=== PATIENT | male | born 1980 | race Caucasian/White ===

== ENCOUNTER 2022-05-26 11:38 | Emergency (ER) | payer OTHER, SELFPAY ==
[2022-05-26 11:59] VITALS: BP 117/75; PULSE 61; RESP 18; TEMP 36.6; O2SAT 100; BMI 24.8
--- NOTE | 2022-05-26 12:06 | PC.NURSE ---
Will stand by assist with doctor for testicle exam
--- NOTE | 2022-05-26 12:12 | DI.US.S_ITS ---
PROCEDURE: US SCROTUM INDICATIONS: LEFT TESTICULAR PAIN TECHNIQUE: Real-time scanning was performed of the scrotum and testicles, with image documentation. Color and pulse Doppler interrogation was performed of both testicles. COMPARISON: None. FINDINGS: Right: Testicle is normal in size at 5 x 2.4 x 3.6 cm, and homogenous in echotexture. Epididymis is normal in overall size and morphology. No varicoceles. There is a small right-sided hydrocele. Overlying scrotal skin is normal in thickness. Left: Testicle is normal in size at 5.8 x 2.9 x 3 cm, and homogeneous in echotexture. Epididymis is normal in overall size and morphology. No hydrocele or varicoceles. Overlying scrotal skin is normal in thickness. Doppler: Color and pulse Doppler demonstrate normal and symmetric arterial flow in both testicles. IMPRESSION: Normal appearing left testicle, with normal appearing vascularity. No testicular masses are seen. A small right-sided hydrocele can be seen. Dictated by: Edis Mena M.D. on 05/26/2022 at 12:21 Approved by: Edis Mena M.D. on 05/26/2022 at 12:22
--- NOTE | 2022-05-26 14:51 | ED_ITS ---
HPI - Male Genitourinary <Francisco Javier Lyon PA-C - Last Filed: 05/26/22 15:02> General Chief complaint: Urogenital-Male Stated complaint: needs an US, lt testicular pain; sent by [facility] in [place] Time Seen by Provider: 05/26/22 12:17 Source: patient Mode of arrival: Family Vehicle History of Present Illness HPI Narrative: Patient is a 41-year-old male presents to the emergency room today with complaint of left testicular pain it started about 3 days ago. Patient states he here in the emergency room today because he reported to the [facility] and they did not have access to an ultrasound. Describes the pain as a dull ache to the left take it testicle that does not radiate. The pain is not tender to touch but he can feel it as a dull ache. Pain is not there all the time and it comes and goes. Denies any urology or bowel bladder concerns. Also denies any sexual dysfunction associated with this condition. Main concern is making sure nothing serious is going on at this time. Related Data Previous Rx's Medication Instructions Recorded albuterol sulfate 90 mcg/actuation 0 puff INH Q4HP PRN #1 ea 08/13/16 aerosol inhaler (Ventolin HFA) doxycycline hyclate 100 mg capsule 100 mg PO Q12H #20 caps 08/13/16 guaifenesin 100 mg oral granules 100 mg PO Q6HP PRN ##20 08/13/16 in packet (Child Mucinex Chest Congest Mini-Melts) Allergies Allergy/AdvReac Type Severity Reaction Status Date / Time No Known Allergies Allergy Uncoded 01/08/18 12:34 <Jayla Kunz DO - Last Filed: 06/02/22 08:02> History of Present Illness HPI Narrative: Patient is a 41-year-old male presents to the emergency room today with complaint of left testicular pain it started about 3 days ago. Patient states he here in the emergency room today because he reported to the [facility] clinic and they did not have access to an ultrasound. Describes the pain as a dull ache to the left take it testicle that does not radiate. The pain is not tender to touch but he can feel it as a dull ache. Pain is not there all the time and it comes and goes. Denies any urology or bowel bladder concerns. Also denies any sexual dysfunction associated with this condition. Main concern is making sure nothing serious is going on at this time. Review of Systems <Francisco Javier Lyon PA-C - Last Filed: 05/26/22 15:02> Review of Systems Narrative: R.O.S.: General: No fever, chills or fatigue. Cardiovascular: No chest pain or palpitations Respiratory: No S.O.B. HEENT: No congestion, ear pain, rhinorrhea, sore throat or tinnitus Gastrointestinal: No nausea or vomiting Skin: No rash or associated abnormalities Neurological: Awake, alert and in not apparent distress. No Headaches, changes in vision or other related neurological concerns. Patient History <Francisco Javier Lyon PA-C - Last Filed: 05/26/22 15:02> Social History Smoking Status: Former smoker Smoking Status: Former smoker tobacco type: cigarettes alcohol intake frequency: 0-2 drinks per day Alcohol type: beer, wine and hard liquor Substance Use Type: does not use Exam <Francisco Javier Lyon PA-C - Last Filed: 05/26/22 15:02> Narrative Exam Narrative: Physical Exam: ? General: normal appearance, well developed, well nourished, alert, and awake. Not in acute distress. ? Head: Normocephalic, no lesions. Chest: Lungs CTAB, no rales, rhonchi or wheezes. ?? Heart: RRR, no murmurs, rubs or gallops. Eyes: PERRLA, EOM's full, conjunctivae clear. ? Neuro: Physiological, no localizing findings, CN3-12 intact. ?? Extremities: Warm, well perfused, FROM, no deformities, no edema. ?? Skin: Normal, no rashes, no lesions noted. ?? PSYCHIATRIC: The mood is good, no blunted affect. Speech is clear. Thought process is linear, thought content is appropriate. The voice is without significant inflection. Abdomen: Soft; NT; ND; Pos BS with Neg. rebound tenderness. No scars or major deformities noted on Visual Inspection. Initial Vital Signs Initial Vital Signs: Vital Signs Temperature 97.9 F 05/26/22 11:59 Pulse Rate 61 05/26/22 11:59 Respiratory Rate 18 05/26/22 11:59 Blood Pressure 117/75 05/26/22 11:59 Pulse Oximetry 100 05/26/22 11:59 Oxygen Delivery Method 05/26/22 11:59 <Jayla Kunz DO - Last Filed: 06/02/22 08:02> Initial Vital Signs Initial Vital Signs: Vital Signs Temperature 97.9 F 05/26/22 11:59 Pulse Rate 61 05/26/22 11:59 Respiratory Rate 18 05/26/22 11:59 Blood Pressure 117/75 05/26/22 11:59 Pulse Oximetry 100 05/26/22 11:59 Oxygen Delivery Method 05/26/22 11:59 Course <Francisco Javier Lyon PA-C - Last Filed: 05/26/22 15:02> Orders Ordered: ED Orders 05/26/22 12:12 US scrotum Stat Vital Signs Vital signs: Vital Signs - 8 hr 05/26/22 11:59 05/26/22 14:58 Temperature 97.9 F Pulse Rate 61 51 L Respiratory Rate 18 16 Blood Pressure 117/75 149/77 H Pulse Oximetry 100 100 Oxygen Delivery Method Room Air Room Air <Jayla Kunz DO - Last Filed: 06/02/22 08:02> Orders Ordered: ED Orders 05/26/22 12:12 US scrotum Stat Vital Signs Vital signs: Vital Signs - 8 hr 05/26/22 11:59 05/26/22 14:58 Temperature 97.9 F Pulse Rate 61 51 L Respiratory Rate 18 16 Blood Pressure 117/75 149/77 H Pulse Oximetry 100 100 Oxygen Delivery Method Room Air Room Air MDM - Male Genitourinary <Francisco Javier Lyon PA-C - Last Filed: 05/26/22 15:02> Lab Data Labs: Urine Dip Bedside Urine Glucose Negative Bedside Urine Bilirubin - Negative Bedside Urine Ketone - Negative Urine Specific Guthrie 1.025 Bedside Urine Occult Blood - Negative Bedside Urine pH 6.0 Bedside Urine Protein - Negative Bedside Urine Urobilinogen - Negative Bedside Urine Nitrite - Negative Bedside Urine Leukocytes - Negative Esterase Imaging Data Testicular US: Radiologist's Impression: PROCEDURE:? US SCROTUM ? INDICATIONS:? LEFT TESTICULAR PAIN ? TECHNIQUE:? Real-time scanning was performed of the scrotum and testicles, with image documentation.? Color and pulse Doppler interrogation was performed of both testicles.? ? COMPARISON:? None. ? FINDINGS:? ? Right:? Testicle is normal in size at 5 x 2.4 x 3.6 cm, and homogenous in echotexture.? Epididymis is normal in overall size and morphology.? No varicoceles.? There is a small right-sided hydrocele.? Overlying scrotal skin is normal in thickness.? ? Left:? Testicle is normal in size at 5.8 x 2.9 x 3 cm, and homogeneous in echotexture.? Epididymis is normal in overall size and morphology.? No hydrocele or varicoceles.? Overlying scrotal skin is normal in thickness.? ? Doppler:? Color and pulse Doppler demonstrate normal and symmetric arterial flow in both testicles.? ? IMPRESSION:? Normal appearing left testicle, with normal appearing vascularity.? No testicular masses are seen. ? A small right-sided hydrocele can be seen. ? ? Dictated by: Edis Mena M.D. on 05/26/2022 at 12:21 ? ? Approved by: Edis Mena M.D. on 05/26/2022 at 12:22 ? MDM Narrative Medical decision making narrative: Patient is a 42-year-old male who presents to the emergency room today with com plaint of left testicular pain it started about 3 days ago. The pain is a dull ache does not radiate and is not tender this time patient also denies any or bowel bladder concerns at this time. Ultrasound and urine were essentially negative. Patient however was diagnosed with a right-sided hydrocele and is being referred to Urology. <Jayla Kunz, DO - Last Filed: 06/02/22 08:02> Lab Data Labs: Urine Dip Bedside Urine Glucose Negative Bedside Urine Bilirubin - Negative Bedside Urine Ketone - Negative Urine Specific Guthrie 1.025 Bedside Urine Occult Blood - Negative Bedside Urine pH 6.0 Bedside Urine Protein - Negative Bedside Urine Urobilinogen - Negative Bedside Urine Nitrite - Negative Bedside Urine Leukocytes - Negative Esterase Discharge Plan Departure Patient Disposition: Home Clinical Impression: Pain in left testicle Instructions: DI for Testicular Pain Activity Restrictions/Additional Instructions: *You have been diagnosed with [left Testicular pain. Ultrasound was negative for urgent emergent concerns but did reveal a hydrocele. As we discussed I will be referring you to urology. We have collected and examined your urine is also negative for infection at this time. I suggested follow-up with urology as are ordered and also suggest she return to the emergency room for any emergent concerns arise..] *What to do: *Please continue to take your regular medications as directed. [ ] New medication prescriptions sent to your pharmacy: [ ] [ ] New medication written as a paper prescription [x] No new medications given *Please follow up with your primary care provider in 2-3 days, call for an appointment. Let them know you were seen in the Emergency Department and that we ask that you be seen in follow up. We will electronically transmit a record of today's note if your PCP is in our system *If you do not have a primary care provider please contact the [facility] Resource line at [phone]. They will ask some questions about your medical history and help get you set up with a doctor in the community. *Return to Emergency Department if you should have any new, worsening or concerning symptoms, such as [fever greater than 101 F, shaking chills, worsening pain, persistent vomiting or other bothersome symptoms] Prescriptions: No Action doxycycline hyclate 100 MG capsule 100 mg PO Q12H Qty: 20 0RF albuterol sulfate [Ventolin HFA] 90 MCG/PUFF HFA aerosol inhaler 0 puff INH Q4HP PRNQty: 1 0RF guaifenesin [Child Mucinex Chest Mini-Melts] 100 MG granules in packet 100 mg PO Q6HP PRNQty: 20 0RF Referrals: Gricelda Garcia MD [Non-Staff] - Nanci Kelly PA-C [Primary Care Provider] - Visit Report Forms: Patient Portal/API <Jayla Kunz DO - Last Filed: 06/02/22 08:02> [place] [facility] Attending Marissa Attestation: I was immediately available in the department for consultation. Documentation has been reviewed.
[2022-05-26 14:58] VITALS: BP 149/77; PULSE 51; RESP 16; O2SAT 100
== END 2022-05-26 15:00 | disposition home or self-care (01) ==
PROVIDERS: Emergency Provider Physician Assistant; Family Provider Family Medicine; PCP Physician Assistant
DX: N50.812 Left testicular pain (principal)
CPT/HCPCS: 76870; 81003; 93975; 99283

== ENCOUNTER 2023-05-06 15:00 | Outpatient (RCR) | payer OTHER, SELFPAY ==
--- NOTE | 2023-03-19 17:41 | PT.OIE ---
Current Diagnoses Radiculopathy, lumbar region (03/19/23) Visit Care Team Role Provider Type Nanci Kelly PA-C Attending Provider Non-Staff Family Provider Primary Care Provider Referring Provider Specialty: Medical Address: [address], [facility] [address], [place], [address] Email: Physical Therapy Initial Evaluation PT-OP-A Visit Information Start: 03/15/23 18:50 Freq: Status: Active Protocol: Document 03/19/23 09:38 LRN (Rec: 03/19/23 13:18 LRN [id number]) Out-Patient Physical Therapy Visit Information Visit Information Visit Type Initial Evaluation Visit Start Time 09:38 Visit Stop Time 10:30 Total Visit Minutes 52 Visit Number 1 Evaluation Information Evaluation Date 03/19/23 Precautions Precautions None PT-OP-B Current Condition Start: 03/15/23 18:50 Freq: Status: Active Protocol: Document 03/19/23 09:38 LRN (Rec: 03/19/23 13:18 LRN [id number]) Current Condition History of Current Condition Onset Date 3 months ago Current Complaints Pain only in posterior L thigh History of Current Condition At 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 The next day had pain in the L LB, day later moved into the lateral hip, then 1 week later the pain moved from the LB/hip into the posterior thigh alone. Worked for past 5 yrs. Still working same duties, trying to take it easy . 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 Pain present after standing 10 minutes or walking 15 minutes. Prior Treatments and Tests Medications: Steroids by mouth. Future Testing and Treatments Planned MRI after PT. Treatment Goals Patient/Caregiver Goals Pt goal is to decrease the L Leg pain to be able to walk > 30 minutes or stand > 30 minutes w/o pain. 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 PT-OP-C Subjective Start: 03/15/23 18:50 Freq: Status: Active Protocol: Document 03/19/23 09:38 LRN (Rec: 03/19/23 13:18 LRN [id number]) Patient Questionnaires Oswestry Low Back Index Oswestry Score 24 Oswestry Impairment 20 to 39% Impaired (Score 20- 39) OP-PT Pain Assessment Pain Assessment Grid Paper Pain Assessment Grid Completed Yes Location Posterior L thigh Pain Location Details Posterior L thigh Intensity 5 Scale Used Numeric (0 - 10) Description Sharp,Shooting Description- Other Pain with prolonged standing or walking Frequency Intermittent Radiating Location Posterior thigh Pain Aggravating Factors Standing,Walking PT-OP-H Neuro Start: 03/15/23 18:50 Freq: Status: Active Protocol: Document 03/19/23 09:38 LRN (Rec: 03/19/23 13:18 LRN [id number]) Sensation Evaluation Gross Sensation Gross Sensation WNL Deep Tendon Reflex & Clonus Assessment Deep Tendon Reflex Left Achilles Deep Tendon Reflex 2+ Normal Right Achilles Deep Tendon Reflex 1+ Diminished Bilateral Patellar Deep Tendon Reflex 2+ Normal PT-OP-J Posture/Palpation/Skin Start: 03/15/23 18:50 Freq: Status: Active Protocol: Document 03/19/23 09:38 LRN (Rec: 03/19/23 13:18 LRN [id number]) Posture Evaluation Position Standing Head/C-Spine Posture Forward Head Pelvis Posture Anteriorly Tilted Weight Distribution Balanced Hip Posture (L) Neutral Comments Posture Comments C-curve of L/S with apex on the left. Palpation Assessment Location Posterior L thigh Palpation Location Posterior L thigh Palpation Findings Soft Tissue Tightness Low back Palpation Location Low back and posterior L hip Palpation Findings Soft Tissue Tightness Palpation Details No pain. PT-OP-K Range of Motion Start: 03/15/23 18:50 Freq: Status: Active Protocol: Document 03/19/23 09:38 LRN (Rec: 03/19/23 13:18 LRN [id number]) Lumbar Spine Range of Motion Lumbar Spine Active Degrees Testing Position Standing Flexion 55 Extension 20 Rotation Left 20 Rotation Right 20 Lateral Flexion Left 15 Lateral Flexion Right 15 ROM Limitations Soft Tissue Tightness,Pain Comments Pain with Flexion Trunk AROM: Flexion is 55 deg ?s with 20 deg?s hip flexion, Trunk extension is 20 deg?s with 10 deg?s hip extension. Hip Goniometric Range of Motion Hip Right Passive Hip ROM WFL Yes Testing Position Supine Straight Leg Raise 50 Internal Rotation 20 External Rotation 40 Left Passive Hip ROM WFL No Testing Position Supine Straight Leg Raise 45 Internal Rotation 25 External Rotation 40 PT-OP-L Special Tests Start: 03/15/23 18:50 Freq: Status: Active Protocol: Document 03/19/23 09:38 LRN (Rec: 03/19/23 13:18 LRN [id number]) Special Tests Lumbar Spine Special Tests Slump Test Results - Comments Lateral hamsting pain.. Straight Leg Raise Test Results +L, 45 deg's, 55 deg's right Prone Press Up Test Results - Vertical Spine Loading Test Results - PT-OP-M Strength Start: 03/15/23 18:50 Freq: Status: Active Protocol: Document 03/19/23 09:38 LRN (Rec: 03/19/23 13:18 LRN [id number]) Trunk Strength Trunk Manual Muscle Testing Core Stabilization Mild lack of stability with trunk rot. Hand Blanket Folder/Pinch Strength Hand Dominance Hand Dominance Right Hip Strength Hip Manual Muscle Testing Right Comments Generally 5/5 Left Comments Generally 5/5 Knee Strength Knee Manual Muscle Testing Right Comments Generally 5/5 Left Comments Generally 5/5 Ankle/Foot Strength Ankle and Foot Manual Muscle Testing Right Comments Generally 5/5 Left Comments Generally 5/5 Toe Strength Toe Manual Muscle Testing Right Great Toe Flexion 5 Normal Left Great Toe Extension 5 Normal PT-OP-Q Treatments Start: 03/15/23 18:50 Freq: Status: Active Protocol: Document 03/19/23 09:38 LRN (Rec: 03/19/23 13:18 LRN [id number]) Therapeutic Exercises Supine Exercises DKTC Supine Exercise Name DKTC Reps/Minutes 2 sec x 2 SKTC Supine Exercise Name SKTC Side bilateral Reps/Minutes 2 sec x 2 Sciatic n glide Supine Exercise Name Hamstring stretch with ankle DF/KY Side left Reps/Minutes 2' Sitting Exercises Sciatic n glide Sitting Exercise Name Sciatic n slider and tensioiner Side left Reps/Minutes 2' Self-Care/Home Management Treatment Education Patient Education Home Exercise Program Other Education Discussed results of evaluation, goals, and plan of care (POC). Pt agreeable to goals and POC. Activities Self-Care/Home Management Activities Issued HEP: SKTC, Hamstring/ LE neural stretch supine and sitting, and Sciatic slider and tensioner. PT-OP-T Assessment and Plan Start: 03/15/23 18:50 Freq: Status: Active Protocol: Document 03/19/23 09:38 LRN (Rec: 03/19/23 13:18 LRN [id number]) Physical Therapy Assessment Rehab Potential Rehabilitation Potential Good Evaluation Complexity Number of Personal Factors/Comorbidities 1-2 Number of Body Systems Impaired 4 or More Clinical Presentation at Evaluation Evolving Impairments Impairments Activity Tolerance,Pain,ROM, Strength Goals Two Impairment L leg pain limiting functional ability Impairment ALFA score 12/50 (24/100) Short Term Goal (STG) Decrease the L Leg pain to be able to walk > 30 minutes or stand > 30 minutes w/o pain. STG Duration 04/18/23 LTG Duration 04/30/23 One Impairment Lacks appropriate self care HEP. Short Term Goal (STG) Pt will be educated in proper sitting and standing posture, proper transfers to to protect LB and proper body mechanics. STG Duration 04/18/23 Chicle Grinder Feeder Goal (LTG) Pt will be independent with a self care HEP of LB/pelvic core stab and hip/lumbar mobility ex's. LTG Duration 06/17/23 Assessment Summary Assessment Pt is a 42 yo male who presents with soft tissue dysfunction of the low back and hips (L>R) with LLE sciatic pain. The pt will benefit from skilled physical therapy to improve trunk/hip mobility and core stability, and pt education to work towards achieving the above stated goals. Physical Therapy Plan Frequency and Duration Frequency of Treatment 2x/Week Plan of Care Start Date 03/19/23 Plan of Care End Date 06/17/23 Therapeutic Interventions Therapeutic Interventions Home Exercise Program,Joint Mobilizations,Manual Therapy, Neuromuscular Re-education, Patient/Caregiver Education, Self-Care/Home Management,Soft Tissue Mobilization, Therapeutic Activities, Therapeutic Exercises Modalities Cold Pack/Ice Massage,Electric Stimulation,Hot Packs, Ultrasound Next Visit Focus/Plan Next Note Type Treatment Note Next Visit Plan Ther Ex: Improve trunk flex, hip mobility (Piriformis, hamstring, hip ER) for sciatic pain, neural glides. Modalities: MH or CP/ES to LB /SIJ. Education: Posture, body mechanics. Manual: L/S, T/S BESST.
--- NOTE | 2023-03-19 17:41 | PT.OPPOC ---
Physical, Occupational & Speech Therapy At [facility] Current Diagnoses Radiculopathy, lumbar region (03/19/23) Visit Care Team Role Provider Type Nanci Kelly PA-C Attending Provider Non-Staff Family Provider Primary Care Provider Referring Provider Specialty: Medical Address: [facility] [address], [address] [address], [place], [address] Email: Plan Of Care PT-OP-T Assessment and Plan Start: 03/15/23 18:50 Freq: Status: Active Protocol: Document 03/19/23 09:38 LRN (Rec: 03/19/23 13:18 LRN [id number]) Physical Therapy Assessment Rehab Potential Rehabilitation Potential Good Evaluation Complexity Number of Personal Factors/Comorbidities 1-2 Number of Body Systems Impaired 4 or More Clinical Presentation at Evaluation Evolving Impairments Impairments Activity Tolerance,Pain,ROM, Strength Goals Two Impairment L leg pain limiting functional ability Impairment ALFA score 12/50 (24/100) Short Term Goal (STG) Decrease the L Leg pain to be able to walk > 30 minutes or stand > 30 minutes w/o pain. STG Duration 04/18/23 LTG Duration 04/30/23 One Impairment Lacks appropriate self care HEP. Short Term Goal (STG) Pt will be educated in proper sitting and standing posture, proper transfers to to protect LB and proper body mechanics. STG Duration 04/18/23 Knifer Up Goal (LTG) Pt will be independent with a self care HEP of LB/pelvic core stab and hip/lumbar mobility ex's. LTG Duration 06/17/23 Assessment Summary Assessment Pt is a 42 yo male who presents with soft tissue dysfunction of the low back and hips (L>R) with LLE sciatic pain. The pt will benefit from skilled physical therapy to improve trunk/hip mobility and core stability, and pt education to work towards achieving the above stated goals. Physical Therapy Plan Frequency and Duration Frequency of Treatment 2x/Week Plan of Care Start Date 03/19/23 Plan of Care End Date 06/17/23 Therapeutic Interventions Therapeutic Interventions Home Exercise Program,Joint Mobilizations,Manual Therapy, Neuromuscular Re-education, Patient/Caregiver Education, Self-Care/Home Management,Soft Tissue Mobilization, Therapeutic Activities, Therapeutic Exercises Modalities Cold Pack/Ice Massage,Electric Stimulation,Hot Packs, Ultrasound Next Visit Focus/Plan Next Note Type Treatment Note Next Visit Plan Ther Ex: Improve trunk flex, hip mobility (Piriformis, hamstring, hip ER) for sciatic pain, neural glides. Modalities: MH or CP/ES to LB /SIJ. Education: Posture, body mechanics. Manual: L/S, T/S JMT. Plan of Care Dates Plan of Care Start Date 03/19/23 Plan of Care End Date 06/17/23 Electronically Signed by: Kiana Matute, PT 03/19/23 [id number] If you are in agreement with this Plan of Care, please return a signed and dated copy. I have reviewed this Plan of Care and certify that the skilled therapy services above are required to meet the patient?s needs. Physician Signature Date Printed Name and Credentials Clinical Instructor Signature Printed Name and Credentials
--- NOTE | 2023-03-21 17:45 | PT.OTN ---
Current Diagnoses Radiculopathy, lumbar region (03/21/23) Physical Therapy Treatment Note PT-OP-A Visit Information Start: 03/15/23 18:50 Freq: Status: Active Protocol: Document 03/21/23 09:34 LRN (Rec: 03/21/23 10:28 LRN [id number]) Out-Patient Physical Therapy Visit Information Visit Information Visit Type Treatment Note Visit Start Time 09:34 Visit Stop Time 10:16 Total Visit Minutes 42 Visit Number 2 Evaluation Information Evaluation Date 03/21/23 Precautions Precautions None PT-OP-B Current Condition Start: 03/15/23 18:50 Freq: Status: Active Protocol: Document 03/19/23 09:38 LRN (Rec: 03/19/23 13:18 LRN [id number]) Current Condition History of Current Condition Onset Date 3 months ago Current Complaints Pain only in posterior L thigh History of Current Condition 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 The next day had pain in the L LB, day later moved into the lateral hip, then 1 week later the pain moved from the LB/hip into the posterior thigh alone. Worked for past 5 yrs. Still working same duties, trying to take it easy . 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 Pain present after standing 10 minutes or walking 15 minutes. Prior Treatments and Tests Medications: Steroids by mouth. Future Testing and Treatments Planned MRI after PT. Treatment Goals Patient/Caregiver Goals Pt goal is to decrease the L Leg pain to be able to walk > 30 minutes or stand > 30 minutes w/o pain. 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 PT-OP-C Subjective Start: 03/15/23 18:50 Freq: Status: Active Protocol: Document 03/21/23 09:34 LRN (Rec: 03/21/23 10:28 LRN [id number]) OP-PT Subjective Patient Comments Patient Comments Pt reports no pain in RLB or hip yet today. Onset L gastroc pain after ~5' on TM, described as achy pain, not toothache pain. PT-OP-H Neuro Start: 03/15/23 18:50 Freq: Status: Active Protocol: Document 03/19/23 09:38 LRN (Rec: 03/19/23 13:18 LRN [id number]) Sensation Evaluation Gross Sensation Gross Sensation WNL Deep Tendon Reflex & Clonus Assessment Deep Tendon Reflex Left Achilles Deep Tendon Reflex 2+ Normal Right Achilles Deep Tendon Reflex 1+ Diminished Bilateral Patellar Deep Tendon Reflex 2+ Normal PT-OP-J Posture/Palpation/Skin Start: 03/15/23 18:50 Freq: Status: Active Protocol: Document 03/21/23 09:34 LRN (Rec: 03/21/23 10:28 LRN [id number]) Palpation Assessment Location L innominate Palpation Location PSIS, ASIS, leg length Palpation Details Sup: L ASIS is low Prone: L PSIS is high Leg length (ASIS to Medial Malleolus): 92.7 cm bilaterally. PT-OP-K Range of Motion Start: 03/15/23 18:50 Freq: Status: Active Protocol: Document 03/19/23 09:38 LRN (Rec: 03/19/23 13:18 LRN [id number]) Lumbar Spine Range of Motion Lumbar Spine Active Degrees Testing Position Standing Flexion 55 Extension 20 Rotation Left 20 Rotation Right 20 Lateral Flexion Left 15 Lateral Flexion Right 15 ROM Limitations Soft Tissue Tightness,Pain Comments Pain with Flexion Trunk AROM: Flexion is 55 deg ?s with 20 deg?s hip flexion, Trunk extension is 20 deg?s with 10 deg?s hip extension. Hip Goniometric Range of Motion Hip Right Passive Hip ROM WFL Yes Testing Position Supine Straight Leg Raise 50 Internal Rotation 20 External Rotation 40 Left Passive Hip ROM WFL No Testing Position Supine Straight Leg Raise 45 Internal Rotation 25 External Rotation 40 PT-OP-L Special Tests Start: 03/15/23 18:50 Freq: Status: Active Protocol: Document 03/19/23 09:38 LRN (Rec: 03/19/23 13:18 LRN [id number]) Special Tests Lumbar Spine Special Tests Slump Test Results - Comments Lateral hamsting pain.. Straight Leg Raise Test Results +L, 45 deg's, 55 deg's right Prone Press Up Test Results - Vertical Spine Loading Test Results - PT-OP-M Strength Start: 03/15/23 18:50 Freq: Status: Active Protocol: Document 03/19/23 09:38 LRN (Rec: 03/19/23 13:18 LRN [id number]) Trunk Strength Trunk Manual Muscle Testing Core Stabilization Mild lack of stability with trunk rot. Hand Glass Calibrator/Pinch Strength Hand Dominance Hand Dominance Right Hip Strength Hip Manual Muscle Testing Right Comments Generally 5/5 Left Comments Generally 5/5 Knee Strength Knee Manual Muscle Testing Right Comments Generally 5/5 Left Comments Generally 5/5 Ankle/Foot Strength Ankle and Foot Manual Muscle Testing Right Comments Generally 5/5 Left Comments Generally 5/5 Toe Strength Toe Manual Muscle Testing Right Great Toe Flexion 5 Normal Left Great Toe Extension 5 Normal PT-OP-Q Treatments Start: 03/15/23 18:50 Freq: Status: Active Protocol: Document 03/21/23 09:34 LRN (Rec: 03/21/23 10:28 LRN [id number]) Cardio Equipment Treadmill Duration (Minutes) 5 Speed 0.8 Incline 0 Other Pain onset of L lower leg Therapeutic Exercises Supine Exercises SI Jt dysf correction Supine Exercise Name SI jt dysf correction phase I Side left Reps/Minutes 6 x with each step. Comments Pt needed much I/S to do routine correctly. Standing Exercises Gastroc/Soleus stretch Standing Exercise Name Gastroc/Soleus stretch Side left Reps/Minutes 8' Self-Care/Home Management Treatment Education Patient Education Body Mechanics,Posture Other Education Pt educated and discussed: proper sitting and standing posture, and proper body mechanics, and proper body mechanics for daily activities . Activities Self-Care/Home Management Activities Issued handouts for proper sitting/standing posture, proper body mechanics and stresses on back in different postions. Issued & review HEP: L Gastroc/Soleus stretch, SIJ dysfunction correction-phase I (Frank ludin hip AD, Ludin L hip Ext, bridging, DKTC stretch). PT-OP-T Assessment and Plan Start: 03/15/23 18:50 Freq: Status: Active Protocol: Document 03/21/23 09:34 LRN (Rec: 03/21/23 10:28 LRN [id number]) Physical Therapy Assessment Goals Two Impairment L leg pain limiting functional ability Impairment ALFA score 12/50 (24/100) Short Term Goal (STG) Decrease the L Leg pain to be able to walk > 30 minutes or stand > 30 minutes w/o pain. 03/21/23: Gait on TM x 5' before onset of L gastroc pain . STG Duration 04/18/23 LTG Duration 04/30/23 One Impairment Lacks appropriate self care HEP. Short Term Goal (STG) Pt will be educated in proper sitting and standing posture, proper transfers to to protect LB and proper body mechanics. 03/21/23: Pt educated in proper sitting and standing posture, and proper body mechanics. STG Duration 04/18/23 progressed 03/21/23 [place] Goal (LTG) Pt will be independent with a self care HEP of LB/pelvic core stab and hip/lumbar mobility ex's. 03/21/23: HEP: L Gastroc/ Soleus stretch, L SIJ dysfunction - phase I correction. 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 Poor tolerance to gait due to L gastroc/soleus tightness. Fair understanding of HEP, further review needed. Physical Therapy Plan Frequency and Duration Frequency of Treatment 2x/Week Plan of Care Start Date 03/19/23 Plan of Care End Date 06/17/23 Next Visit Focus/Plan Next Note Type Treatment Note Next Visit Plan Assess response to posture and ADL body mechanics training and HEP (SIJ correction) and gastroc stretch. Review HEP previously issued. Ther Ex: Improve trunk flex, hip mobility (Piriformis, hamstring, hip ER) for sciatic pain, neural glides. Modalities: MH or CP/ES to LB /SIJ. Education: proper transfers to to protect LB. Manual: L/S, T/S BESST.
--- NOTE | 2023-03-26 10:28 | PT.OTN ---
Current Diagnoses Radiculopathy, lumbar region (03/26/23) Physical Therapy Treatment Note PT-OP-A Visit Information Start: 03/15/23 18:50 Freq: Status: Active Protocol: Document 03/26/23 09:34 LRN (Rec: 03/26/23 10:28 LRN [id number]) Out-Patient Physical Therapy Visit Information Visit Information Visit Type Treatment Note Visit Start Time 09:34 Visit Stop Time 10:16 Total Visit Minutes 44 Visit Number 3/6 Evaluation Information Evaluation Date 03/21/23 Precautions Precautions None PT-OP-B Current Condition Start: 03/15/23 18:50 Freq: Status: Active Protocol: Document 03/19/23 09:38 LRN (Rec: 03/19/23 13:18 LRN [id number]) Current Condition History of Current Condition Onset Date 3 months ago Current Complaints Pain only in posterior L thigh History of Current Condition 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 The next day had pain in the L LB, day later moved into the lateral hip, then 1 week later the pain moved from the LB/hip into the posterior thigh alone. Worked for past 5 yrs. Still working same duties, trying to take it easy . 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 Pain present after standing 10 minutes or walking 15 minutes. Prior Treatments and Tests Medications: Steroids by mouth. Future Testing and Treatments Planned MRI after PT. Treatment Goals Patient/Caregiver Goals Pt goal is to decrease the L Leg pain to be able to walk > 30 minutes or stand > 30 minutes w/o pain. Personal Factors Other Personal Factors That May Effect Working part time as [employer] Therapy/Recovery with some physical duties. PT-OP-C Subjective Start: 03/15/23 18:50 Freq: Status: Active Protocol: Document 03/26/23 09:34 LRN (Rec: 03/26/23 10:28 LRN [id number]) OP-PT Subjective Patient Comments Patient Comments Pt reports pain in L LB 3-4/10 . PT-OP-H Neuro Start: 03/15/23 18:50 Freq: Status: Active Protocol: Document 03/19/23 09:38 LRN (Rec: 03/19/23 13:18 LRN [id number]) Sensation Evaluation Gross Sensation Gross Sensation WNL Deep Tendon Reflex & Clonus Assessment Deep Tendon Reflex Left Achilles Deep Tendon Reflex 2+ Normal Right Achilles Deep Tendon Reflex 1+ Diminished Bilateral Patellar Deep Tendon Reflex 2+ Normal PT-OP-J Posture/Palpation/Skin Start: 03/15/23 18:50 Freq: Status: Active Protocol: Document 03/26/23 09:34 LRN (Rec: 03/26/23 10:28 LRN [id number]) Palpation Assessment Location L innominate Palpation Location Medial mallelus Palpation Details Long leg on left in supine PT-OP-K Range of Motion Start: 03/15/23 18:50 Freq: Status: Active Protocol: Document 03/19/23 09:38 LRN (Rec: 03/19/23 13:18 LRN [id number]) Lumbar Spine Range of Motion Lumbar Spine Active Degrees Testing Position Standing Flexion 55 Extension 20 Rotation Left 20 Rotation Right 20 Lateral Flexion Left 15 Lateral Flexion Right 15 ROM Limitations Soft Tissue Tightness,Pain Comments Pain with Flexion Trunk AROM: Flexion is 55 deg ?s with 20 deg?s hip flexion, Trunk extension is 20 deg?s with 10 deg?s hip extension. Hip Goniometric Range of Motion Hip Right Passive Hip ROM WFL Yes Testing Position Supine Straight Leg Raise 50 Internal Rotation 20 External Rotation 40 Left Passive Hip ROM WFL No Testing Position Supine Straight Leg Raise 45 Internal Rotation 25 External Rotation 40 PT-OP-L Special Tests Start: 03/15/23 18:50 Freq: Status: Active Protocol: Document 03/19/23 09:38 LRN (Rec: 03/19/23 13:18 LRN [id number]) Special Tests Lumbar Spine Special Tests Slump Test Results - Comments Lateral hamsting pain.. Straight Leg Raise Test Results +L, 45 deg's, 55 deg's right Prone Press Up Test Results - Vertical Spine Loading Test Results - PT-OP-M Strength Start: 03/15/23 18:50 Freq: Status: Active Protocol: Document 03/19/23 09:38 LRN (Rec: 03/19/23 13:18 LRN [id number]) Trunk Strength Trunk Manual Muscle Testing Core Stabilization Mild lack of stability with trunk rot. Hand Rock Star/Pinch Strength Hand Dominance Hand Dominance Right Hip Strength Hip Manual Muscle Testing Right Comments Generally 5/5 Left Comments Generally 5/5 Knee Strength Knee Manual Muscle Testing Right Comments Generally 5/5 Left Comments Generally 5/5 Ankle/Foot Strength Ankle and Foot Manual Muscle Testing Right Comments Generally 5/5 Left Comments Generally 5/5 Toe Strength Toe Manual Muscle Testing Right Great Toe Flexion 5 Normal Left Great Toe Extension 5 Normal PT-OP-Q Treatments Start: 03/15/23 18:50 Freq: Status: Active Protocol: Document 03/26/23 09:34 LRN (Rec: 03/26/23 10:28 LRN [id number]) Therapeutic Exercises Supine Exercises L Hip Flexor Stretch Supine Exercise Name Hip Flexor stretch Side left Reps/Minutes 60 SH x 1 Comments Extra time to determine max tolerated stretch position Hip ER stretch Supine Exercise Name Fig 4 in hooklie position Side bilateral Reps/Minutes 60 SH x 1 Comments Extra time to determine max tolerated stretch position Lateral hip stretch Supine Exercise Name Lateral hip stretch Side bilateral Reps/Minutes 60 SH x 1 Comments Extra time to determine max tolerated stretch position Piriformis stretch Supine Exercise Name Piriformis stretch Side bilateral Reps/Minutes 60 SH x 1 Comments Extra time to determine max tolerated stretch position TA tightening Supine Exercise Name TA tightening after SIJ correction Reps/Minutes 10 SH x 6 Bridging Supine Exercise Name Bridging Reps/Minutes 10x SI Jt dysf correction Supine Exercise Name SI jt dysf correction phase I Side right Reps/Minutes 6 x with each step. Comments Resisted hip flexion on R today for L anterior rot DKTC Supine Exercise Name DKTC Reps/Minutes 10 sec x 10 Manual Therapy Treatment Joint Mobilizations L SIJ Joint L SIJ Direction Resisted hip AD, Resisted hip flex Body Position Supine Reps/Duration 12' Comments Corrected L long leg. Self-Care/Home Management Treatment Education Patient Education Home Exercise Program Other Education Pt educated in how to recognize leg length difference for innominate dysfunction. Activities Self-Care/Home Management Activities Issued & reviewed w/ instruction change for SIJ dysfunction phase I for anteriorly rotated L innominate. Issued & reviewed HEP for hip stretches: Piriformis, lateral hip, Fig 4, L side Iliopsoas stretch. Cautioned pt that Iliopsoas stretch may rotate innominate anteriorly and to monitor closely leg length after exercise. PT-OP-T Assessment and Plan Start: 03/15/23 18:50 Freq: Status: Active Protocol: Document 03/26/23 09:34 LRN (Rec: 03/26/23 10:28 LRN [id number]) Physical Therapy Assessment Goals Two Impairment L leg pain limiting functional ability Impairment ALFA score 12/50 (24/100) Short Term Goal (STG) Decrease the L Leg pain to be able to walk > 30 minutes or stand > 30 minutes w/o pain. 03/21/23: Gait on TM x 5' before onset of L gastroc pain . STG Duration 04/18/23 LTG Duration 04/30/23 One Impairment Lacks appropriate self care HEP. Short Term Goal (STG) Pt will be educated in proper sitting and standing posture, proper transfers to to protect LB and proper body mechanics. 03/21/23: Pt educated in proper sitting and standing posture, and proper body mechanics. STG Duration 04/18/23 progressed 03/21/23 (needs educ proper transfers) Senior Care Goal (LTG) Pt will be independent with a self care HEP of LB/pelvic core stab and hip/lumbar mobility ex's. 03/21/23: HEP: L Gastroc/ Soleus stretch, L SIJ dysfunction - phase I correction. 03/26/23: HEP: Hip stretches and reissue of L SIJ dysfunction correction. LTG Duration 06/17/23 progressed 03/26/23 Assessment Summary Assessment Soft tissue dysfunction of the low back and hips (L>R) with LLE sciatic pain, probably due to L anteriorly rotate innominate. Pt needing correction for L innominate anteriorly rotated (long L leg ). Corrected with resisted hip AD & Flexion. Pt mentally feeling like leg is short in corrected state. Pt reporting he is monitoring his posture and following proper body mechanics training. Physical Therapy Plan Frequency and Duration Frequency of Treatment 2x/Week Plan of Care Start Date 03/19/23 Plan of Care End Date 06/17/23 Next Visit Focus/Plan Next Note Type Treatment Note Next Visit Plan Assess response to HEP (SIJ correction) and gastroc stretch and previously issued hip stretches. Education: proper transfers to to protect LB, Manual: Sacral balancing. Ther Ex: Improve trunk flex, neural glides. Modalities: MH or CP/ES to LB /SIJ.. Manual: L/S, T/S JMT.
--- NOTE | 2023-04-23 10:43 | PT.OTN ---
Current Diagnoses Radiculopathy, lumbar region (04/23/23) Physical Therapy Treatment Note PT-OP-A Visit Information Start: 03/15/23 18:50 Freq: Status: Active Protocol: Document 04/23/23 08:50 LRN (Rec: 04/23/23 09:36 LRN [id number]) Out-Patient Physical Therapy Visit Information Visit Information Visit Type Treatment Note Visit Start Time 08:50 Visit Stop Time 09:30 Total Visit Minutes 40 Visit Number 4/6 Evaluation Information Evaluation Date 03/21/23 Precautions Precautions None PT-OP-B Current Condition Start: 03/15/23 18:50 Freq: Status: Active Protocol: Document 03/19/23 09:38 LRN (Rec: 03/19/23 13:18 LRN [id number]) Current Condition History of Current Condition Onset Date 3 months ago Current Complaints Pain only in posterior L thigh History of Current Condition 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 The next day had pain in the L LB, day later moved into the lateral hip, then 1 week later the pain moved from the LB/hip into the posterior thigh alone. Worked for past 5 yrs. Still working same duties, trying to take it easy . 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 Pain present after standing 10 minutes or walking 15 minutes. Prior Treatments and Tests Medications: Steroids by mouth. Future Testing and Treatments Planned MRI after PT. Treatment Goals Patient/Caregiver Goals Pt goal is to decrease the L Leg pain to be able to walk > 30 minutes or stand > 30 minutes w/o pain. 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 PT-OP-C Subjective Start: 03/15/23 18:50 Freq: Status: Active Protocol: Document 04/23/23 08:50 LRN (Rec: 04/23/23 09:36 LRN [id number]) OP-PT Subjective Patient Comments Patient Comments Pain from leg to only the LB over the weekend, rated 3/10. Pt able to walk and stand 30 ' without L leg pain. Has been working on sitting posture, still sleeps on sides . Has been slacking on the ex 's for past week. PT-OP-H Neuro Start: 03/15/23 18:50 Freq: Status: Active Protocol: Document 03/19/23 09:38 LRN (Rec: 03/19/23 13:18 LRN [id number]) Sensation Evaluation Gross Sensation Gross Sensation WNL Deep Tendon Reflex & Clonus Assessment Deep Tendon Reflex Left Achilles Deep Tendon Reflex 2+ Normal Right Achilles Deep Tendon Reflex 1+ Diminished Bilateral Patellar Deep Tendon Reflex 2+ Normal PT-OP-J Posture/Palpation/Skin Start: 03/15/23 18:50 Freq: Status: Active Protocol: Document 03/26/23 09:34 LRN (Rec: 03/26/23 10:28 LRN [id number]) Palpation Assessment Location L innominate Palpation Location Medial mallelus Palpation Details Long leg on left in supine PT-OP-K Range of Motion Start: 03/15/23 18:50 Freq: Status: Active Protocol: Document 03/19/23 09:38 LRN (Rec: 03/19/23 13:18 LRN [id number]) Lumbar Spine Range of Motion Lumbar Spine Active Degrees Testing Position Standing Flexion 55 Extension 20 Rotation Left 20 Rotation Right 20 Lateral Flexion Left 15 Lateral Flexion Right 15 ROM Limitations Soft Tissue Tightness,Pain Comments Pain with Flexion Trunk AROM: Flexion is 55 deg ?s with 20 deg?s hip flexion, Trunk extension is 20 deg?s with 10 deg?s hip extension. Hip Goniometric Range of Motion Hip Right Passive Hip ROM WFL Yes Testing Position Supine Straight Leg Raise 50 Internal Rotation 20 External Rotation 40 Left Passive Hip ROM WFL No Testing Position Supine Straight Leg Raise 45 Internal Rotation 25 External Rotation 40 PT-OP-L Special Tests Start: 03/15/23 18:50 Freq: Status: Active Protocol: Document 03/19/23 09:38 LRN (Rec: 03/19/23 13:18 LRN [id number]) Special Tests Lumbar Spine Special Tests Slump Test Results - Comments Lateral hamsting pain.. Straight Leg Raise Test Results +L, 45 deg's, 55 deg's right Prone Press Up Test Results - Vertical Spine Loading Test Results - PT-OP-M Strength Start: 03/15/23 18:50 Freq: Status: Active Protocol: Document 03/19/23 09:38 LRN (Rec: 03/19/23 13:18 LRN [id number]) Trunk Strength Trunk Manual Muscle Testing Core Stabilization Mild lack of stability with trunk rot. Hand Oxyacetylene Burner/Pinch Strength Hand Dominance Hand Dominance Right Hip Strength Hip Manual Muscle Testing Right Comments Generally 5/5 Left Comments Generally 5/5 Knee Strength Knee Manual Muscle Testing Right Comments Generally 5/5 Left Comments Generally 5/5 Ankle/Foot Strength Ankle and Foot Manual Muscle Testing Right Comments Generally 5/5 Left Comments Generally 5/5 Toe Strength Toe Manual Muscle Testing Right Great Toe Flexion 5 Normal Left Great Toe Extension 5 Normal PT-OP-Q Treatments Start: 03/15/23 18:50 Freq: Status: Active Protocol: Document 04/23/23 08:50 LRN (Rec: 04/23/23 09:36 LRN [id number]) Therapeutic Exercises Supine Exercises Hip ER stretch Supine Exercise Name Fig 4 stretch Side bilateral Reps/Minutes 60 SH x 1 Comments Extra time to determine max tolerated stretch position Lateral hip stretch Supine Exercise Name Lateral hip stretch Side bilateral Reps/Minutes 60 SH x 1 Comments Extra time to determine max tolerated stretch position Piriformis stretch Supine Exercise Name Piriformis stretch Side bilateral Reps/Minutes 60 SH x 1 Comments Extra time to determine max tolerated stretch position Bridging Supine Exercise Name Bridging Reps/Minutes 15x 2 SI Jt dysf correction Supine Exercise Name SI jt dysf correction f/b Phase 1 exercise Side right Reps/Minutes 8' Comments Resisted L hip flexion for L anterior rot innominate. Corrected dysfunction DKTC Supine Exercise Name DKTC Reps/Minutes 30 SH x 2 Other Exercises 1/2 Kneel L hip flexor stretch Other Exercise Name 1/2 kneel L Iliopsoas stretch Side left Reps/Minutes 10 SH x 10 Comments Extra time taken to determine proper position & max hannah stretch Therapeutic Activity Therapeutic Activity Transfer training Name Transfer training in/out of bed Reps/Minutes 6' Comments Phys & v cuing needed. Manual Therapy Treatment Joint Mobilizations L SIJ Body Position Supine Self-Care/Home Management Treatment Education Patient Education Home Exercise Program Activities Self-Care/Home Management Activities HEP issued & reviewed: Half Kneel L hip flexor stretch. PT-OP-T Assessment and Plan Start: 03/15/23 18:50 Freq: Status: Active Protocol: Document 04/23/23 08:50 LRN (Rec: 04/23/23 09:36 LRN [id number]) Physical Therapy Assessment Goals Two Impairment L leg pain limiting functional ability Impairment ALFA score 12/50 (24/100) Short Term Goal (STG) Decrease the L Leg pain to be able to walk > 30 minutes or stand > 30 minutes w/o pain. 03/21/23: Gait on TM x 5' before onset of L gastroc pain . STG Duration 04/18/23 (04/22/23: MET GOAL ) LTG Duration 04/30/23 One Impairment Lacks appropriate self care HEP. Short Term Goal (STG) Pt will be educated in proper sitting and standing posture, proper transfers to to protect LB and proper body mechanics. 03/21/23: Pt educated in proper sitting and standing posture, and proper body mechanics. STG Duration 04/18/23 progressed 03/21/23 (needs educ proper transfers) Group Home Goal (LTG) Pt will be independent with a self care HEP of LB/pelvic core stab and hip/lumbar mobility ex's. 03/21/23: HEP: L Gastroc/ Soleus stretch, L SIJ dysfunction - phase I correction. 03/26/23: HEP: Hip stretches and reissue of L SIJ dysfunction correction. 04/23/23: HEP: 1/2 kneel hip flexor stretch. LTG Duration 06/17/23 progressed 04/23/23 Progress Towards Goals Progress Comments Goal # 2 MET, per pt report. Assessment Summary Assessment Soft tissue dysfunction of the low back and hips (L>R) with LLE sciatic pain that has not centralized to the LB. Pt recalls being sore after last session, but unaware how long it lasted. Palpation of leg length is L long in supine and longer in longsit. Easy correction of anterior rot L innominate with manual mob. Pt has fair recall of hip stretches. Physical Therapy Plan Frequency and Duration Frequency of Treatment 2x/Week Plan of Care Start Date 03/19/23 Plan of Care End Date 06/17/23 Next Visit Focus/Plan Next Note Type Treatment Note Next Visit Plan In 2 visits: Possible DC or PN to request more visits. Review proper transfers to to protect LB, Manual: If needed, sacral balancing, T/S JMT. Ther Ex: Improve trunk flex, neural glides and stabilize core. Modalities as needed: MH or CP/ES to LB/SIJ.
--- NOTE | 2023-04-25 15:59 | PT.OTN ---
Current Diagnoses Radiculopathy, lumbar region (04/25/23) Physical Therapy Treatment Note PT-OP-A Visit Information Start: 03/15/23 18:50 Freq: Status: Active Protocol: Document 04/25/23 13:28 LRN (Rec: 04/25/23 14:03 LRN [id number]) Out-Patient Physical Therapy Visit Information Visit Information Visit Type Treatment Note Visit Start Time 13:28 Visit Stop Time 13:53 Total Visit Minutes 25 Visit Number 5/6 Evaluation Information Evaluation Date 03/21/23 Precautions Precautions None PT-OP-B Current Condition Start: 03/15/23 18:50 Freq: Status: Active Protocol: Document 03/19/23 09:38 LRN (Rec: 03/19/23 13:18 LRN [id number]) Current Condition History of Current Condition Onset Date 3 months ago Current Complaints Pain only in posterior L thigh History of Current Condition 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 The next day had pain in the L LB, day later moved into the lateral hip, then 1 week later the pain moved from the LB/hip into the posterior thigh alone. Worked for past 5 yrs. Still working same duties, trying to take it easy . 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 Pain present after standing 10 minutes or walking 15 minutes. Prior Treatments and Tests Medications: Steroids by mouth. Future Testing and Treatments Planned MRI after PT. Treatment Goals Patient/Caregiver Goals Pt goal is to decrease the L Leg pain to be able to walk > 30 minutes or stand > 30 minutes w/o pain. 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 PT-OP-C Subjective Start: 03/15/23 18:50 Freq: Status: Active Protocol: Document 04/25/23 13:28 LRN (Rec: 04/25/23 14:03 LRN [id number]) OP-PT Subjective Patient Comments Patient Comments A little sore after the last session but is back to feeling pretty good, LBP is 1/10 and L LE 0/10 since last sesson. Follow up with referring provider the middle of next month. Patient Reported Progress Improving Patient Questionnaires Oswestry Low Back Index Oswestry Score ............ PT-OP-H Neuro Start: 03/15/23 18:50 Freq: Status: Active Protocol: Document 03/19/23 09:38 LRN (Rec: 03/19/23 13:18 LRN [id number]) Sensation Evaluation Gross Sensation Gross Sensation WNL Deep Tendon Reflex & Clonus Assessment Deep Tendon Reflex Left Achilles Deep Tendon Reflex 2+ Normal Right Achilles Deep Tendon Reflex 1+ Diminished Bilateral Patellar Deep Tendon Reflex 2+ Normal PT-OP-J Posture/Palpation/Skin Start: 03/15/23 18:50 Freq: Status: Active Protocol: Document 03/26/23 09:34 LRN (Rec: 03/26/23 10:28 LRN [id number]) Palpation Assessment Location L innominate Palpation Location Medial mallelus Palpation Details Long leg on left in supine PT-OP-K Range of Motion Start: 03/15/23 18:50 Freq: Status: Active Protocol: Document 03/19/23 09:38 LRN (Rec: 03/19/23 13:18 LRN [id number]) Lumbar Spine Range of Motion Lumbar Spine Active Degrees Testing Position Standing Flexion 55 Extension 20 Rotation Left 20 Rotation Right 20 Lateral Flexion Left 15 Lateral Flexion Right 15 ROM Limitations Soft Tissue Tightness,Pain Comments Pain with Flexion Trunk AROM: Flexion is 55 deg ?s with 20 deg?s hip flexion, Trunk extension is 20 deg?s with 10 deg?s hip extension. Hip Goniometric Range of Motion Hip Right Passive Hip ROM WFL Yes Testing Position Supine Straight Leg Raise 50 Internal Rotation 20 External Rotation 40 Left Passive Hip ROM WFL No Testing Position Supine Straight Leg Raise 45 Internal Rotation 25 External Rotation 40 PT-OP-L Special Tests Start: 03/15/23 18:50 Freq: Status: Active Protocol: Document 03/19/23 09:38 LRN (Rec: 03/19/23 13:18 LRN [id number]) Special Tests Lumbar Spine Special Tests Slump Test Results - Comments Lateral hamsting pain.. Straight Leg Raise Test Results +L, 45 deg's, 55 deg's right Prone Press Up Test Results - Vertical Spine Loading Test Results - PT-OP-M Strength Start: 03/15/23 18:50 Freq: Status: Active Protocol: Document 03/19/23 09:38 LRN (Rec: 03/19/23 13:18 LRN [id number]) Trunk Strength Trunk Manual Muscle Testing Core Stabilization Mild lack of stability with trunk rot. Hand Methods Time Analyst/Pinch Strength Hand Dominance Hand Dominance Right Hip Strength Hip Manual Muscle Testing Right Comments Generally 5/5 Left Comments Generally 5/5 Knee Strength Knee Manual Muscle Testing Right Comments Generally 5/5 Left Comments Generally 5/5 Ankle/Foot Strength Ankle and Foot Manual Muscle Testing Right Comments Generally 5/5 Left Comments Generally 5/5 Toe Strength Toe Manual Muscle Testing Right Great Toe Flexion 5 Normal Left Great Toe Extension 5 Normal PT-OP-Q Treatments Start: 03/15/23 18:50 Freq: Status: Active Protocol: Document 04/25/23 13:28 LRN (Rec: 04/25/23 14:03 LRN [id number]) Therapeutic Exercises Supine Exercises Piriformis stretch Supine Exercise Name Piriformis stretch - review Side bilateral Reps/Minutes 60 SH x 1 DKTC Supine Exercise Name DKTC - review Reps/Minutes 30 SH x 2 Sidelying Exercises Thoracic Rot stretch Sidelying Exercise Name OPen book Side bilateral Reps/Minutes 10 SH x 6 Comments Extra time taken to determine max tolerated stretch Sitting Exercises Thoracic Rot stretch Sitting Exercise Name Thoracic rot sit w/self assist and w/o assist Side bilateral Reps/Minutes 10 SH x 6 Comments Extra time taken to determine max tolerated stretch Self-Care/Home Management Treatment Education Patient Education Home Exercise Program Activities Self-Care/Home Management Activities Issued & review HEP: Sitting and sidelie thoracic rot stretch. PT-OP-T Assessment and Plan Start: 03/15/23 18:50 Freq: Status: Active Protocol: Document 04/25/23 13:28 LRN (Rec: 04/25/23 14:03 LRN [id number]) Physical Therapy Assessment Goals Two Impairment L leg pain limiting functional ability Impairment ALFA score 12/50 (24/100) Short Term Goal (STG) Decrease the L Leg pain to be able to walk > 30 minutes or stand > 30 minutes w/o pain. 03/21/23: Gait on TM x 5' before onset of L gastroc pain . STG Duration 04/18/23 (04/22/23: MET GOAL ) One Impairment Lacks appropriate self care HEP. Short Term Goal (STG) Pt will be educated in proper sitting and standing posture, proper transfers to to protect LB and proper body mechanics. 03/21/23: Pt educated in proper sitting and standing posture, and proper body mechanics. STG Duration 04/18/23 progressed 03/21/23 (needs educ proper transfers) Group Home Goal (LTG) Pt will be independent with a self care HEP of LB/pelvic core stab and hip/lumbar mobility ex's. 03/21/23: HEP: L Gastroc/ Soleus stretch, L SIJ dysfunction - phase I correction. 03/26/23: HEP: Hip stretches and reissue of L SIJ dysfunction correction. 04/23/23: HEP: 1/2 kneel hip flexor stretch. 04/25/23: HEP: Thoracic rot stretch in sidelie and sitting LTG Duration 06/17/23 progressed 04/25/23 Assessment Summary Assessment Pt needing to leave early due to work. Pt overall improved since last treatment. Today, no LLE pain, LBP 10/09. Good understanding of new ex, thoracic rot stretch. Pt needs review of HEP of most appropriate ex's prior to DC. Pt most likely will be appropriate to DC next visit unless flare up and ALFA worsens. Physical Therapy Plan Frequency and Duration Frequency of Treatment 2x/Week Plan of Care Start Date 03/19/23 Plan of Care End Date 06/17/23 Next Visit Focus/Plan Next Note Type Discharge Summary Next Visit Plan Review for DC (recheck ALFA for change). Review proper transfers to to protect LB (STG #1), Review HEP for appropriate stretches (trunk flex, review neural glides, hip & T/S stretches) and place on core stab ex program HEP. Manual: T/S JMT. Modalities as needed: MH or CP/ES to LB/SIJ.
--- NOTE | 2023-05-06 16:06 | PT.OTN ---
Current Diagnoses Radiculopathy, lumbar region (05/06/23) Physical Therapy Treatment Note PT-OP-A Visit Information Start: 03/15/23 18:50 Freq: Status: Active Protocol: Document 05/06/23 15:02 LRN (Rec: 05/06/23 16:05 LRN [id number]) Out-Patient Physical Therapy Visit Information Visit Information Visit Type Treatment Note Visit Start Time 15:02 Visit Stop Time 15:50 Total Visit Minutes 48 Visit Number 03/05 Evaluation Information Evaluation Date 03/21/23 Precautions Precautions None PT-OP-B Current Condition Start: 03/15/23 18:50 Freq: Status: Active Protocol: Document 03/19/23 09:38 LRN (Rec: 03/19/23 13:18 LRN [id number]) Current Condition History of Current Condition Onset Date 3 months ago Current Complaints Pain only in posterior L thigh History of Current Condition At work was 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 The next day had pain in the L LB, day later moved into the lateral hip, then 1 week later the pain moved from the LB/hip into the posterior thigh alone. Worked for past 5 yrs. Still working same duties, trying to take it easy . 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 Pain present after standing 10 minutes or walking 15 minutes. Prior Treatments and Tests Medications: Steroids by mouth. Future Testing and Treatments Planned MRI after PT. Treatment Goals Patient/Caregiver Goals Pt goal is to decrease the L Leg pain to be able to walk > 30 minutes or stand > 30 minutes w/o pain. 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 PT-OP-C Subjective Start: 03/15/23 18:50 Freq: Status: Active Protocol: Document 05/06/23 15:02 LRN (Rec: 05/06/23 16:05 LRN [id number]) OP-PT Subjective Patient Comments Patient Comments States he is doing good with no reported pain. Pt agreeable to DC to HEP. Patient Questionnaires Oswestry Low Back Index Oswestry Score 0 Oswestry Impairment 0% Impaired (Score 0) PT-OP-H Neuro Start: 03/15/23 18:50 Freq: Status: Active Protocol: Document 03/19/23 09:38 LRN (Rec: 03/19/23 13:18 LRN [id number]) Sensation Evaluation Gross Sensation Gross Sensation WNL Deep Tendon Reflex & Clonus Assessment Deep Tendon Reflex Left Achilles Deep Tendon Reflex 2+ Normal Right Achilles Deep Tendon Reflex 1+ Diminished Bilateral Patellar Deep Tendon Reflex 2+ Normal PT-OP-J Posture/Palpation/Skin Start: 03/15/23 18:50 Freq: Status: Active Protocol: Document 03/26/23 09:34 LRN (Rec: 03/26/23 10:28 LRN [id number]) Palpation Assessment Location L innominate Palpation Location Medial mallelus Palpation Details Long leg on left in supine PT-OP-K Range of Motion Start: 03/15/23 18:50 Freq: Status: Active Protocol: Document 03/19/23 09:38 LRN (Rec: 03/19/23 13:18 LRN [id number]) Lumbar Spine Range of Motion Lumbar Spine Active Degrees Testing Position Standing Flexion 55 Extension 20 Rotation Left 20 Rotation Right 20 Lateral Flexion Left 15 Lateral Flexion Right 15 ROM Limitations Soft Tissue Tightness,Pain Comments Pain with Flexion Trunk AROM: Flexion is 55 deg ?s with 20 deg?s hip flexion, Trunk extension is 20 deg?s with 10 deg?s hip extension. Hip Goniometric Range of Motion Hip Right Passive Hip ROM WFL Yes Testing Position Supine Straight Leg Raise 50 Internal Rotation 20 External Rotation 40 Left Passive Hip ROM WFL No Testing Position Supine Straight Leg Raise 45 Internal Rotation 25 External Rotation 40 PT-OP-L Special Tests Start: 03/15/23 18:50 Freq: Status: Active Protocol: Document 03/19/23 09:38 LRN (Rec: 03/19/23 13:18 LRN [id number]) Special Tests Lumbar Spine Special Tests Slump Test Results - Comments Lateral hamsting pain.. Straight Leg Raise Test Results +L, 45 deg's, 55 deg's right Prone Press Up Test Results - Vertical Spine Loading Test Results - PT-OP-M Strength Start: 03/15/23 18:50 Freq: Status: Active Protocol: Document 03/19/23 09:38 LRN (Rec: 03/19/23 13:18 LRN [id number]) Trunk Strength Trunk Manual Muscle Testing Core Stabilization Mild lack of stability with trunk rot. Hand Rn Child/Pinch Strength Hand Dominance Hand Dominance Right Hip Strength Hip Manual Muscle Testing Right Comments Generally 5/5 Left Comments Generally 5/5 Knee Strength Knee Manual Muscle Testing Right Comments Generally 5/5 Left Comments Generally 5/5 Ankle/Foot Strength Ankle and Foot Manual Muscle Testing Right Comments Generally 5/5 Left Comments Generally 5/5 Toe Strength Toe Manual Muscle Testing Right Great Toe Flexion 5 Normal Left Great Toe Extension 5 Normal PT-OP-Q Treatments Start: 03/15/23 18:50 Freq: Status: Active Protocol: Document 05/06/23 15:02 LRN (Rec: 05/06/23 16:05 LRN [id number]) Gym Equipment Cable Column (Body Solid) Lat Pull Down Resistance 30 Reps/Time 10x Hip Adduction Resistance 20 Reps/Time 10x Hip Abduction Resistance 20 Reps/Time 10x Leg Extension Resistance 30 Reps/Time 10x Leg Curl Resistance 30 Reps/Time 10x Therapeutic Exercises Supine Exercises Lateral hip stretch Supine Exercise Name Lateral hip stretch Side bilateral Reps/Minutes 60 SH x 1 Comments Extra time to determine max tolerated stretch position Piriformis stretch Supine Exercise Name Piriformis stretch - review Side bilateral Reps/Minutes 60 SH x 1 DKTC Supine Exercise Name DKTC - review Reps/Minutes 30 SH x 2 Sidelying Exercises Thoracic Rot stretch Sidelying Exercise Name Open book Side bilateral Reps/Minutes 10 SH x 6 Sitting Exercises TA tightening Sitting Exercise Name TA tightening review for gym ex's and home core stab program Reps/Minutes 2' Thoracic Rot stretch Sitting Exercise Name Thoracic rot sit w/self assist and w/o assist Side bilateral Reps/Minutes 10 SH x 6 Sciatic n glide Sitting Exercise Name Kick the head > Kick the head off > Kick the head. Reps/Minutes 5x each position, bilaterally Therapeutic Activity Therapeutic Activity Transfer training Name Transfer training in/out of bed Reps/Minutes 2x Comments Phys & v cuing needed. Self-Care/Home Management Treatment Education Patient Education Home Exercise Program Other Education Reviewed with pt proper proper transfers to to protect LB and proper body mechanics. Activities Self-Care/Home Management Activities Pt education in core stab program of TA tightening, PF/ TA, Neutral spine (NS), NS with LE movements of heels slides, SLR, marching, kali leg lifts, bug, I/S in wall slide. PT-OP-T Assessment and Plan Start: 03/15/23 18:50 Freq: Status: Active Protocol: Document 05/06/23 15:02 LRN (Rec: 05/06/23 16:05 LRN [id number]) Physical Therapy Assessment Goals Two Impairment L leg pain limiting functional ability Impairment ALFA score 12/50 (24/100) Short Term Goal (STG) Decrease the L Leg pain to be able to walk > 30 minutes or stand > 30 minutes w/o pain. 03/21/23: Gait on TM x 5' before onset of L gastroc pain . STG Duration 04/18/23 (04/22/23: MET GOAL ) One Impairment Lacks appropriate self care HEP. Short Term Goal (STG) Pt will be educated in proper sitting and standing posture, proper transfers to protect LB and proper body mechanics. 03/21/23: Pt educated in proper sitting and standing posture, and proper body mechanics. 05/06/23: Pt education review of proper transfers to protect the LB. STG Duration 04/18/23 (05/06/23: MET GOAL ) Jail Goal (LTG) Pt will be independent with a self care HEP of LB/pelvic core stab and hip/lumbar mobility ex's. 03/21/23: HEP: L Gastroc/ Soleus stretch, L SIJ dysfunction - phase I correction. 03/26/23: HEP: Hip stretches and reissue of L SIJ dysfunction correction. 04/23/23: HEP: 1/2 kneel hip flexor stretch. 04/25/23: HEP: Thoracic rot stretch in sidelie and sitting . 05/06/23: HEP: Core stabilization, review of LB stretch (DKTC stretch and lumbar rotation in sitting). LTG Duration 06/17/23 (05/06/23: MET GOAL) Assessment Summary Assessment Pt attends with no c/o LBP/LE pain. He demonstrates good transfer ability and was very receptive to education of gym body exercise with focus on core/pelvic stability and his HEP. Pt is ready to be placed on his independent HEP. Physical Therapy Plan Discharge Physical Therapy Discharge Reasons Goals Met Discharge Comments Pt has L LE neural tension that resolved after neutral glide ex. He appears to have good knowledge of what he should be doing for his HEP. Thank you for your referral.
== END 2023-05-09 09:56 | disposition home or self-care (01) ==
LOC: PHYS 15:00
PROVIDERS: Family Provider Physician Assistant; PCP Physician Assistant; Referring Provider Physician Assistant; Visit Provider Physician Assistant
DX: M54.16 Radiculopathy, lumbar region (principal)
CPT/HCPCS: 97110; 97140; 97161; 97530; 97535